=== PATIENT | male | born 2000 | race Caucasian/White ===

== ENCOUNTER 2025-09-04 21:35 | Inpatient (IN) | payer OTHER ==
[~2025-09-04] VITALS: Ht 167.6 cm; Wt 67.6 kg
[2025-09-04 22:48] LABS: APPEARANCE,URINE CLEAR (CLEAR); BLOOD, URINE NEGATIVE Ery/uL (NEGATIVE); LEUKOCYTE ESTERASE ,URINE NEGATIVE (NEGATIVE); NITRITE, URINE NEGATIVE (NEGATIVE); UGLUCOSE NEGATIVE (NEGATIVE)
[2025-09-04 22:56] LABS: ADD URINE CULTURE NO; SQUAMOUS EPITHELIAL CELL,UR Few /HPF (None Seen)
[2025-09-04 22:58] LABS: AMPHETAMINE, URINE NEGATIVE (NEGATIVE); BARBITURATE, URINE NEGATIVE (NEGATIVE); BENZODIAZEPINE, URINE NEGATIVE (NEGATIVE); CANNABINOID, URINE NEGATIVE (NEGATIVE); COCCAINE, URINE NEGATIVE (NEGATIVE); OPIATE, URINE NEGATIVE (NEGATIVE)
[2025-09-04 23:02] LABS: PLATELET COUNT (AUTO) 205 K/uL (150-450); RED BLOOD CELL COUNT(AUTO) 5.20 MIL/uL (4.5-6.0); RED CELL DISTRIBUTION WIDTH 13.2 % (11.5-15.0); WHITE BLOOD COUNT (AUTO) 6.5 K/uL (4.3-11.0)
[2025-09-04 23:07] LABS: CALCIUM, SERUM 8.9 mg/dL (8.5-10.1); CREATININE 0.9 mg/dL (0.6-1.3); SODIUM SERUM 137.0 mmol/L (136-145); UREA NITROGEN, BLOOD 13.0 mg/dL (7-18)
[2025-09-04 23:13] LABS: ASPARTATE AMINOTRANSFERASE 22.0 U/L (15-37); TOTAL PROTEIN, SERUM 7.4 g/dL (6.4-8.2)
[2025-09-04] MEDS ORDERED: ACETYLCYSTEINE 20% ORAL SOLN 6,000 MG/30 ML VIAL ONE (23:23)
[2025-09-04] MEDS: ACETYLCYSTEINE IV 6,000 MG/30 ML VIAL IV ONE (23:45)
[2025-09-05] MEDS ORDERED: MAG HYDROX/AL HYDROX/SIMETH 30 ML UDC PO PRN
[2025-09-05] MEDS ORDERED: MAGNESIUM HYDROXIDE 30 ML UDC PO PRN
[2025-09-05] MEDS ORDERED: FAMOTIDINE/PF INJ 20 MG/2 ML VIAL IV ONE (00:23)
[2025-09-05] MEDS: FAMOTIDINE/PF INJ 20 MG/2 ML VIAL IV ONE (00:26)
[2025-09-05] MEDS ORDERED: ACETYLCYSTEINE 20% ORAL SOLN 6,000 MG/30 ML VIAL PO SCH ×3 (01:00→06:00)
[2025-09-05] MEDS ORDERED: ACETYLCYSTEINE IV 0 MG in IV D5W 1,000 ML IV SCH (01:00)
[2025-09-05] MEDS: ACETYLCYSTEINE 20% SOLN 800 MG/4 ML VIAL ONE ×3 (01:21→01:31)
[2025-09-05] MEDS: ONDANSETRON HCL/PF 4 MG/2 ML VIAL IVP PRN (01:55)
[2025-09-05] MEDS: ACETYLCYSTEINE 20% ORAL SOLN 6,000 MG/30 ML VIAL PO ONE (01:57)
[2025-09-05 03:00] VITALS: BP 126/69; TEMP 98.2; O2SAT 98
[2025-09-05] MEDS: IV NS 0.9% 1,000 ML IV SCH (03:30)
[2025-09-05 03:31] LABS: ASPARTATE AMINOTRANSFERASE 43.0 U/L (15-37); TOTAL PROTEIN, SERUM 7.7 g/dL (6.4-8.2)
[2025-09-05 04:00] VITALS: BP 126/69; TEMP 98.2; O2SAT 98
[2025-09-05 06:34] LABS: PLATELET COUNT (AUTO) 239 K/uL (150-450); RED BLOOD CELL COUNT(AUTO) 5.31 MIL/uL (4.5-6.0); RED CELL DISTRIBUTION WIDTH 13.3 % (11.5-15.0); WHITE BLOOD COUNT (AUTO) 11.5 K/uL (4.3-11.0)
[2025-09-05 07:15] LABS: CALCIUM, SERUM 9.5 mg/dL (8.5-10.1); CREATININE 1.0 mg/dL (0.6-1.3); PHOSPHORUS 3.4 mg/dL (2.5-4.9); SODIUM SERUM 138.0 mmol/L (136-145); UREA NITROGEN, BLOOD 13.0 mg/dL (7-18)
[2025-09-05 08:00] VITALS: BP 119/76; TEMP 97.5; O2SAT 98
[2025-09-05] MEDS: ACETYLCYSTEINE 20% ORAL SOLN 6,000 MG/30 ML VIAL PO SCH (08:13)
[2025-09-05 10:56] LABS: ASPARTATE AMINOTRANSFERASE 49.0 U/L (15-37); TOTAL PROTEIN, SERUM 7.4 g/dL (6.4-8.2)
[2025-09-05 12:00] VITALS: BP 118/68; TEMP 98.1; O2SAT 98
[2025-09-05] MEDS: IV NS 0.9% 1,000 ML IV PRN (15:11)
[2025-09-05 16:00] VITALS: BP 124/58; TEMP 98; O2SAT 98
[2025-09-05 16:46] LABS: ASPARTATE AMINOTRANSFERASE 83.0 U/L (15-37); TOTAL PROTEIN, SERUM 7.2 g/dL (6.4-8.2)
[2025-09-05 20:00] VITALS: BP 121/81; TEMP 98.1; O2SAT 98
[2025-09-05 23:48] LABS: ASPARTATE AMINOTRANSFERASE 79.0 U/L (15-37); TOTAL PROTEIN, SERUM 6.9 g/dL (6.4-8.2)
[2025-09-06] VITALS: BP 125/86; TEMP 97.3; O2SAT 96
[2025-09-06 03:09] LABS: ASPARTATE AMINOTRANSFERASE 81.0 U/L (15-37); TOTAL PROTEIN, SERUM 7.0 g/dL (6.4-8.2)
[2025-09-06 04:00] VITALS: BP 120/73; TEMP 97.7; O2SAT 96
[2025-09-06 08:00] VITALS: BP 122/68; TEMP 97.9; O2SAT 98
[2025-09-06 10:14] LABS: ASPARTATE AMINOTRANSFERASE 109.0 U/L (15-37); TOTAL PROTEIN, SERUM 6.5 g/dL (6.4-8.2)
== END 2025-09-06 15:32 | disposition home or self-care (01) | DRG 817 ==
LOC: ER 21:37 → MEDSG1 09-05 02:23 → TELE1 09-05 02:48 → MEDSG1 09-06 09:54
PROVIDERS: ADMIT Student in an Organized Health Care Education/Training Program; ATTEND Nurse Practitioner Acute Care
DX: T39.1X2A Poisoning by 4-Aminophenol derivatives, intentional self-harm, initial encounter (principal); D72.829 Elevated white blood cell count, unspecified; Y92.009 Unspecified place in unspecified non-institutional (private) residence as the place of occurrence of the external cause; F14.90 Cocaine use, unspecified, uncomplicated; R74.01 Elevation of levels of liver transaminase levels; F17.210 Nicotine dependence, cigarettes, uncomplicated; Z71.6 Tobacco abuse counseling
CPT/HCPCS: 36415; 80048-TC; 80076-TC; 81001; 83735-TC; 84100-TC; 85025-TC; A4223; G0378; G0480; J0132; J1200; J1308; J2405; J2919; J3490; J7030; J7060